=== PATIENT | female | born 1990 | race Caucasian/White ===

== ENCOUNTER 2018-11-01 19:22 | Emergency (ER) | payer BC ==
[~2018-11-01] VITALS: Ht 165.1 cm; Wt 74.8 kg
[2018-11-01 20:32] VITALS: BP 124/78
--- NOTE | 2018-11-01 20:34 | NUR ---
ED Nurse Note: Pt states L leg and R chest pain since 2 days ago. pain level 3/10. Pt has Hx of high cholesterol and control meds.
--- NOTE | 2018-11-01 20:57 | Emergency Room Report ---
History of Present Illness General Chief Complaint: Pain Source: Patient Present Illness HPI She is a 28-year-old female presented after increased left lower extremity cramping. She reports having intermittent pain to that area. She denies any leg swelling. Patient was noted to have prior history of oral contraceptive use. She denies any fever. She reports having some intermittent burning sensation to her chest. She denies any shortness of breath or severe chest discomfort. She had no exertional symptoms.Patient denies any recent trauma or prolonged travel. Allergies: Uncoded Allergies: POLLEN (Allergy, Unknown, 11/01/18) Patient History Past Medical History: see triage record Last Menstrual Period: Oct 22 2018 Now: No Reviewed Nursing Documentation: PMH: Agreed; PSxH: Agreed Nursing Documentation-PMH Hx Cerebrovascular Accident: Yes - high cholesterol Review of Systems All Other Systems: negative except mentioned in HPI Physical Exam Vital Signs Date Time Temp Pulse Resp B/P (MAP) Pulse Ox O2 Delivery O2 Flow Rate FiO2 11/01/18 20:18 98.2 64 18 124/78 97 Room Air Sp02 EP Interpretation: reviewed, normal General Appearance: normal inspection, well appearing, no apparent distress, alert, GCS 15 Head: atraumatic ENT: normal ENT inspection, hearing grossly normal, normal voice Neck: normal inspection, full range of motion, supple, no bony tend Respiratory: normal inspection, lungs clear, normal breath sounds, no respiratory distress, no retraction, no wheezing Cardiovascular #1: regular rate, rhythm, no edema Gastrointestinal: normal inspection, normal bowel sounds, non tender, soft, no guarding, no hernia Genitourinary: no CVA tenderness Musculoskeletal: normal inspection, back normal, normal range of motion Neurologic: normal inspection, alert, oriented x3, responsive, 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 Differential diagnosis include was not limited to muscle cramp, deep venous thrombosis, cellulitis, muscle strain among others. Patient has a benign exam and does not appear to require any further imaging or laboratory testing at this time. Patient has no palpable cords are notable leg swelling. Color appears to be normal. Patient has a negative Homans sign. Patient was noted to have no acute distress. EKG was ordered due to patient's complaint of chest discomfort.EKG interpreted by me showed normal sinus rhythm without acute ST or T wave changes. Patient was not noted to be tachycardic. Patient was offered ultrasound imaging which she declined.Patient does not appear to have any physical exam findings consistent with a DVT. EKG Diagnostic Results Rate: bradycardiac Rhythm: NSR ST Segments: other - j point elevation Last Vital Signs Date Time Temp Pulse Resp B/P (MAP) Pulse Ox O2 Delivery O2 Flow Rate FiO2 11/01/18 20:32 98.2 84 18 124/78 97 Room Air Status: improved Disposition: HOME, SELF-CARE Condition: Stable Scripts Ibuprofen* (MOTRIN*) 600 Mg Tablet 600 MG ORAL Q8H PRN for For Pain, #30 TAB 0 Refills Prov: Lucian Juan MD 11/01/18 Lucian Juan MD Nov 01, 2018 20:57
[2018-11-01] MEDS ORDERED: IBUPROFEN600 MG ORAL (21:12)
--- NOTE | 2018-11-01 21:17 | NUR ---
ER DISCHARGE NOTE: Patient is cleared to be discharged per ERMD, pt is aox4, on room air, with stable vital signs. pt was given dc and prescription instructions, pt was able to verbalize understanding, pt id bandremoved without complications. pt is able to ambulate with steady gait. pt took all belongings.
[2018-11-01 21:21] VITALS: BP 120/78
== END 2018-11-01 21:19 | disposition home or self-care (01) ==
LOC: EMR 20:56
DX: R07.9 Chest pain, unspecified (principal); M79.605 Pain in left leg; E78.00 Pure hypercholesterolemia, unspecified; Z91.048 Other nonmedicinal substance allergy status
CPT/HCPCS: 93005; 99283